=== PATIENT | male | born 1955 | race Caucasian/White ===

== ENCOUNTER → 2016-06-13 | Outpatient (CLI) | payer BC | END | disposition short-term general hospital (02) | LOC: CLCARD 08:42 | DX: I25.10 Atherosclerotic heart disease of native coronary artery without angina pectoris (principal); I10 Essential (primary) hypertension; E78.5 Hyperlipidemia, unspecified; H93.19 Tinnitus, unspecified ear; Z95.1 Presence of aortocoronary bypass graft ==